=== PATIENT | female | born 2000 | race Caucasian/White ===

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

== ENCOUNTER 2019-03-13 15:20 | Emergency (ER) | payer MEDICAID ==
[~2019-03-13] VITALS: Ht 152.4 cm; Wt 55.8 kg
[~2019-03-13 15:20] MED LIST changes: +OMEP40CA13 PO; -OMEP40CA37 PO; +ONDA4TAB12 PO
[2019-03-13] MEDS ORDERED: ondansetron/PF 4mg/2ml inj IV ONE (15:30)
[2019-03-13] MEDS ORDERED: normal saline 1000ML IV soln IVB ONE (15:30)
[2019-03-13 15:59] LABS: BASOPHILS % (AUTO) 0.2 % (0-1); EOSINOPHILS % (AUTO) 0 % (0-6); HEMATOCRIT 39.6 % (35.0-45.0); HEMOGLOBIN 13.5 g/dl (12.0-16.0); LYMPHOCYTES # (AUTO) 0.9 X10'3 (1.1-4.8); LYMPHOCYTES % (AUTO) 7.9 % (21-51); MEAN CORPUSCULAR HEMOGLOBIN 32.4 PG (27.0-31.0); MEAN CORPUSCULAR HGB CONC 34.2 g/dL (33.0-36.5); MEAN CORPUSCULAR VOLUME 94.7 FL (78-98); MONOCYTES # (AUTO) 0.3 X10'3 (0-0.9); MONOCYTES % (AUTO) 2.3 % (2-12); NEUTROPHILS % (AUTO) 89.6 % (42-75); PLATELET COUNT 358 X10'3 (140-440); RED BLOOD COUNT 4.18 X10'6 (4.20-5.60); RED CELL DISTRIBUTION WIDTH 12.6 % (11.5-14.5); WHITE BLOOD COUNT 11.1 X10'3 (4.5-11.0)
[2019-03-13 16:02] LABS: CLARITY,URINE SLIGHTLY CLOUDY (Clear); COLOR,URINE YELLOW (Yellow); GLUCOSE, URINE NEGATIVE (Neg); KETONES,URINE >=80 mg/dl (Neg); LEUKOCYTE ESTERASE ,URINE NEGATIVE (Neg); NITRITES, URINE NEGATIVE (Neg); OCCULT BLOOD,URINE TRACE-INTACT (Neg); PROTEIN,URINE 30 mg/dl (Neg); UROBILINOGEN,URINE 0.2 E.U/dL (0.2-1.0)
[2019-03-13 16:07] LABS: UA COLLECTION TYPE CLN CATCH MIDSTREAM
[2019-03-13 16:13] LABS: ALANINE AMINOTRANSFERASE 20 U/L (12-78); ALBUMIN 4.5 G/DL (3.4-5.0); ALBUMIN/GLOBULIN RATIO 1.1 (1.1-1.5); ALKALINE PHOSPHATASE 59 IU/L (20-180); ANION GAP 20 (8-16); ASPARTATE AMINO TRANSFERASE 16 U/L (10-37); BILIRUBIN,TOTAL 0.4 MG/DL (0.1-1.0); BLOOD UREA NITROGEN 18 MG/DL (7-18); BUN/CREATININE RATIO 20.2 (6.6-38.0); CALCIUM 9.8 MG/DL (8.5-10.1); CHLORIDE 98 MMOL/L (99-107); CREATININE 0.89 MG/DL (0.40-0.90); GLUCOSE 100 MG/DL (70-104); LIPASE < 50 U/L (73-393); POTASSIUM 3.6 MMOL/L (3.5-5.1); SODIUM 136 MMOL/L (135-145); TOTAL CARBON DIOXIDE 18.3 MMOL/L (24-32); TOTAL PROTEIN 8.5 G/DL (6.4-8.2); eGFR 82 ML/MIN
[2019-03-13 16:20] LABS: MUCUS STRANDS MANY /LPF (Neg); SQUAMOUS EPITHELIAL CELL,UR MANY /LPF (FEW)
[2019-03-13 16:22] LABS: BACTERIA,URINE 1+ /HPF (Neg)
[2019-03-13 16:23] LABS: TRANSITIONAL EPI CELLS,URINE FEW /HPF
[2019-03-13 16:24] LABS: RBC,URINE 0-2 /HPF (0-2)
[2019-03-13 16:25] LABS: HYALINE CASTS 0-3 /LPF (NEGATIVE)
[2019-03-13] MEDS ORDERED: PROC25SU31 RC (17:23)
[2019-03-13 18:02] VITALS: BP 125/76
== END 2019-03-13 18:04 | disposition home or self-care (01) ==
LOC: ER 15:20
DX: R11.15 Cyclical vomiting syndrome unrelated to migraine (principal); R11.2 Nausea with vomiting, unspecified; R10.13 Epigastric pain; R19.7 Diarrhea, unspecified; F12.90 Cannabis use, unspecified, uncomplicated; Z79.899 Other long term (current) drug therapy
CPT/HCPCS: 36415; 80053; 81001; 83690; 85025; 96361; 96374; 99283; J2405; J7030

== ENCOUNTER 2021-01-07 05:34 | Emergency (ER) | payer MEDICAID ==
[~2021-01-07] VITALS: Ht 152.4 cm; Wt 56.8 kg
[~2021-01-07 05:34] MED LIST changes: -OMEP40CA13 PO; +OMEP40CA21 PO
[2021-01-07] MEDS ORDERED: normal saline 1000ml 1,000 ML IV ONE (06:15)
[2021-01-07] MEDS ORDERED: ondansetron/PF 4mg/2ml inj IV ONE (06:15)
[2021-01-07 06:54] LABS: ALBUMIN 4.4 G/DL (3.4-5.0); ANION GAP 13 (8-16); BLOOD UREA NITROGEN 17 MG/DL (7-18); BUN/CREATININE RATIO 19.5 (6.6-38.0); CALCIUM 9.4 MG/DL (8.5-10.1); CHLORIDE 98 MMOL/L (99-107); CREATININE 0.87 MG/DL (0.40-0.90); GLUCOSE 118 MG/DL (70-104); POTASSIUM 3.5 MMOL/L (3.5-5.1); SODIUM 135 MMOL/L (135-145); TOTAL CARBON DIOXIDE 24.4 MMOL/L (24-32); eGFR 82 ML/MIN
[2021-01-07 07:08] LABS: URINE HCG NEGATIVE (NEG)
[2021-01-07 07:27] VITALS: BP 104/66
== END 2021-01-07 07:28 | disposition home or self-care (01) ==
LOC: ER 05:34
DX: R11.15 Cyclical vomiting syndrome unrelated to migraine (principal); R25.2 Cramp and spasm; F12.90 Cannabis use, unspecified, uncomplicated; Z79.899 Other long term (current) drug therapy
CPT/HCPCS: 36415; 80048; 81025; 96361; 96374; 99284; J2405; J7030

== ENCOUNTER 2021-03-08 06:37 | Emergency (ER) | payer MEDICAID ==
[~2021-03-08] VITALS: Ht 152.4 cm; Wt 57.0 kg
[2021-03-08] MEDS ORDERED: normal saline 1000ML IV soln IVB ONE (07:15)
[2021-03-08] MEDS ORDERED: pantoprazole 40MG/NS 100ML BAG 100 ML IV ONE (07:15)
[2021-03-08] MEDS ORDERED: ondansetron/PF 4mg/2ml inj IV ONE (07:15)
[2021-03-08] MEDS ORDERED: pantoprazole IV 40 MG in dextrose 5%-water 100 ML IV ONE (07:41)
[2021-03-08 07:45] LABS: ALANINE AMINOTRANSFERASE 25 U/L (12-78); ALBUMIN/GLOBULIN RATIO 0.9 (1.1-1.5); ALKALINE PHOSPHATASE 62 IU/L (46-116); ANION GAP 13 (8-16); ASPARTATE AMINO TRANSFERASE 17 U/L (10-37); BILIRUBIN,TOTAL 0.3 MG/DL (0.1-1.0); BLOOD UREA NITROGEN 15 MG/DL (7-18); BUN/CREATININE RATIO 18.5 (6.6-38.0); CALCIUM 9.2 MG/DL (8.5-10.1); CHLORIDE 96 MMOL/L (99-107); CREATININE 0.81 MG/DL (0.40-0.90); GLUCOSE 114 MG/DL (70-104); LIPASE < 50 U/L (73-393); SODIUM 136 MMOL/L (135-145); TOTAL CARBON DIOXIDE 27.4 MMOL/L (24-32); TOTAL PROTEIN 8.4 G/DL (6.4-8.2); eGFR 89 ML/MIN
[2021-03-08 07:50] LABS: BASOPHILS % (AUTO) 0.2 % (0-1); EOSINOPHILS % (AUTO) 0 % (0-6); HEMATOCRIT 38.3 % (35.0-45.0); HEMOGLOBIN 13.3 g/dl (12.0-16.0); LYMPHOCYTES # (AUTO) 0.8 X10'3 (1.1-4.8); LYMPHOCYTES % (AUTO) 13.8 % (21-51); MEAN CORPUSCULAR HEMOGLOBIN 32.3 PG (27.0-31.0); MEAN CORPUSCULAR HGB CONC 34.8 g/dL (33.0-36.5); MEAN CORPUSCULAR VOLUME 92.8 FL (78-98); MEAN PLATELET VOLUME 8.8 FL (7.4-10.4); MONOCYTES # (AUTO) 0.6 X10'3 (0-0.9); MONOCYTES % (AUTO) 9.5 % (2-12); NEUTROPHILS # (AUTO) 4.6 X10'3 (1.8-7.7); NEUTROPHILS % (AUTO) 76.5 % (42-75); PLATELET COUNT 338 X10'3 (140-440); RED BLOOD COUNT 4.13 X10'6 (4.20-5.60); RED CELL DISTRIBUTION WIDTH 12.9 % (11.5-14.5); WHITE BLOOD COUNT 6.1 X10'3 (4.5-11.0)
[2021-03-08] MEDS ORDERED: potassium Cl 10 mEq/100mL bag IV ONE (07:50)
[2021-03-08 08:02] LABS: HCG SERUM QL NEGATIVE
[2021-03-08] MEDS ORDERED: ONDA8TAB13 PO (08:07)
[2021-03-08 08:10] VITALS: BP 123/75
== END 2021-03-08 09:24 | disposition home or self-care (01) ==
LOC: ER 06:38
DX: R11.15 Cyclical vomiting syndrome unrelated to migraine (principal); R05.9 Cough, unspecified; G43.909 Migraine, unspecified, not intractable, without status migrainosus; Z20.822 Contact with and (suspected) exposure to COVID-19
CPT/HCPCS: 36415; 71046; 80053; 83690; 84703; 85025; 87635; 96365; 96375; 99284; C9113; C9803; J2405; J3480; J7030; J7060

== ENCOUNTER 2021-03-21 09:18 | Emergency (ER) | payer MEDICAID ==
[~2021-03-21] VITALS: Ht 152.4 cm; Wt 54.5 kg
[~2021-03-21 09:18] MED LIST changes: +ONDA8TAB13 PO
[2021-03-21 11:11] LABS: BASOPHILS # (AUTO) 0.1 X10'3 (0-0.2); BASOPHILS % (AUTO) 0.5 % (0-1); EOSINOPHILS % (AUTO) 0.3 % (0-6); HEMATOCRIT 39.5 % (35.0-45.0); HEMOGLOBIN 13.5 g/dl (12.0-16.0); LYMPHOCYTES # (AUTO) 1.8 X10'3 (1.1-4.8); LYMPHOCYTES % (AUTO) 14.2 % (21-51); MEAN CORPUSCULAR HEMOGLOBIN 32.3 PG (27.0-31.0); MEAN CORPUSCULAR HGB CONC 34.3 g/dL (33.0-36.5); MEAN CORPUSCULAR VOLUME 94.2 FL (78-98); MONOCYTES # (AUTO) 1.2 X10'3 (0-0.9); MONOCYTES % (AUTO) 9.8 % (2-12); NEUTROPHILS # (AUTO) 9.5 X10'3 (1.8-7.7); NEUTROPHILS % (AUTO) 75.2 % (42-75); PLATELET COUNT 429 X10'3 (140-440); RED BLOOD COUNT 4.19 X10'6 (4.20-5.60); RED CELL DISTRIBUTION WIDTH 13.4 % (11.5-14.5); WHITE BLOOD COUNT 12.6 X10'3 (4.5-11.0)
[2021-03-21 11:26] LABS: ALANINE AMINOTRANSFERASE 20 U/L (12-78); ALBUMIN 4.1 G/DL (3.4-5.0); ALKALINE PHOSPHATASE 66 IU/L (46-116); ANION GAP 11 (8-16); ASPARTATE AMINO TRANSFERASE 14 U/L (10-37); BILIRUBIN,TOTAL 0.3 MG/DL (0.1-1.0); BLOOD UREA NITROGEN 11 MG/DL (7-18); BUN/CREATININE RATIO 12.9 (6.6-38.0); CALCIUM 9.6 MG/DL (8.5-10.1); CHLORIDE 99 MMOL/L (99-107); CREATININE 0.85 MG/DL (0.40-0.90); GLUCOSE 94 MG/DL (70-104); POTASSIUM 3.7 MMOL/L (3.5-5.1); SODIUM 138 MMOL/L (135-145); TOTAL CARBON DIOXIDE 27.6 MMOL/L (24-32); TOTAL PROTEIN 8.3 G/DL (6.4-8.2); eGFR 84 ML/MIN
[2021-03-21 11:34] LABS: ACETAMINOPHEN < 2.0 UG/ML (10-30); ETHANOL < 0.010 GM/DL (0.0-0.010)
[2021-03-21 12:18] LABS: CLARITY,URINE CLEAR (Clear); COLOR,URINE YELLOW (Yellow); GLUCOSE, URINE NEGATIVE (Neg); KETONES,URINE 40 mg/dl (Neg); LEUKOCYTE ESTERASE ,URINE NEGATIVE (Neg); NITRITES, URINE NEGATIVE (Neg); OCCULT BLOOD,URINE LARGE (Neg); PROTEIN,URINE TRACE mg/dl (Neg); UROBILINOGEN,URINE 0.2 E.U/dL (0.2-1.0)
[2021-03-21 12:19] LABS: URINE HCG NEGATIVE (NEG)
[2021-03-21 12:23] LABS: UA COLLECTION TYPE CLN CATCH MIDSTREAM
[2021-03-21 12:25] LABS: BACTERIA,URINE FEW /HPF (Neg); MUCUS STRANDS MODERATE /LPF (Neg); SQUAMOUS EPITHELIAL CELL,UR FEW /LPF (FEW); WBC,URINE 0-4 /HPF (0-4)
[2021-03-21 12:32] LABS: URINE AMPHETAMINE SCREEN NEGATIVE (Neg); URINE BARBITUATE SCREEN NEGATIVE (Neg); URINE BENZODIAZEPINES SCREEN NEGATIVE (Neg); URINE CANNABINOID SCREEN POSITIVE (Neg); URINE COCAINE SCREEN NEGATIVE (Neg); URINE METHADONE SCREEN NEGATIVE (Neg); URINE OPIATE SCREEN NEGATIVE (Neg); URINE PHENCYCLIDINE SCREEN NEGATIVE (Neg)
--- NOTE | 2021-03-21 12:54 | NUR ---
Patient states she is here because her family thinks she is having a mental break. Patient states "I awoke today after 100 years and I'm the Jovan. "I can't stay here because I have people to rule and too much to do." Patient appears manic. No diagnosis of psych HX. Aunt says this has been going on constant X 3 days. Little hints now and then in the past year but nothing like this per Aunt. Patient attempted to leave after RN advised patient she was on a [address] [facility] could evaluate her. The Aunt stopped her from leaving.
--- NOTE | 2021-03-21 13:00 | NUR ---
PACKET FAXED TO [facility] OFFICE
--- NOTE | 2021-03-21 13:50 | NUR ---
Patient is hypomanic and disorganized AEB Patient talking to Aunt. "I have no modesty at all." Aunt replies, 3 days ago you were very modest. Patient states "Well I am very modest." The Aunt replies you just said you had no modesty at all." Patient states "It's because of my friend." Patient yells to RN "Just think logically! If you concentrate you can do it!" Continue to monitor.
--- NOTE | 2021-03-21 14:09 | NUR ---
[facility], [facility], evaluating patient.
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
[2021-03-21] MEDS ORDERED: diphenhydrAMINE 50 mg/ml inj IM ONE (14:45)
[2021-03-21] MEDS ORDERED: haloperidol lactate 5mg/ml inj IM ONE (14:45)
[2021-03-21] MEDS ORDERED: LORazepam 2 mg/ml vial IM ONE (14:45)
--- NOTE | 2021-03-21 15:17 | NUR ---
Patient was advised of 5150 with Security at side. Patient attempted to leave and RN gave patient ordered Ativan, Benadryl and Haldol I.M. Patient keeps stating she is leaving. Patient has 3 times attempted to leave. Patient states she is leaving in 20 minutes. Aunt left. Continue to monitor.
--- NOTE | 2021-03-21 15:20 | NUR ---
Aunt Jessica Cortez,
--- NOTE | 2021-03-21 17:10 | NUR ---
Patient sleeping. No distress observed. Continue to monitor.
[2021-03-21] MEDS ORDERED: [UNRECOGNIZED DRUG - OTHER] PO (18:36)
--- NOTE | 2021-03-21 19:00 | NUR ---
PATIENT IS AWAKE AND DELUSIONAL. SHE PRESENTS HYPOMANIC, PATIENT IDENTIFIES ROMINA THE GREAT. PATIENT EXHIBITS PRESSURED SPEECH, EYE CONTACT IS DIRECT. PATIENT IS COOPERATIVE WITH THIS CLINICAL TECH.
--- NOTE | 2021-03-21 20:56 | NUR ---
PATIENT IS SLEEPING QUIETLY ON HER LEFT SIDE. IN DIRECT VIEW FROM THE NURSES STATION.
--- NOTE | 2021-03-21 21:16 | NUR ---
COVID 19 TEST IS NEGATIVE.
--- NOTE | 2021-03-21 21:25 | NUR ---
PATIENT IS BEING MOVED TO BED 8 IN THE MAIN ED. DUSTIN ZHENG HAS BEEN GIVEN REPORT. SHE WILL BE ASSUMING CARE OF PATIENT.
--- NOTE | 2021-03-22 07:09 | NUR ---
Pt somewhat agitated. Frequently getting out of bed and pacing around room. Sitter at bedside. Pt referring to themselves as "Yusuf".
--- NOTE | 2021-03-22 08:00 | NUR ---
Pt intermittently resting. Sits up and states that she is "ready to move now". Settles after re-explaining that she is not ready to be moved yet.
--- NOTE | 2021-03-22 09:30 | NUR ---
PATIENT'S AUNT CAME IN TO VISIT, CARLO SCOTT, . SHE STATED THAT SHE FOUND LETTERS IN THE PT'S ROOM FROM "ULI" WHO IS IN LONGTERM FOR CHILD MOLESTATION, WITH "CREEPY" AND DISTURBING COMMENTS ABOUT LITTLE BOYS AND THE PATIENT'S YOUNGER BROTHER. AUNT WANTED TO MAKE US AWARE OF THE LETTERS. PT NORMALLY GOES BY "[facility]" WHEN THEY ARE NOT MANIC, AND HAS BEEN TRANS FOR ABOUT TWO YEARS PER AUNT.
--- NOTE | 2021-03-22 10:31 | NUR ---
Transported to [facility], #23 without difficulties. Security present.
--- NOTE | 2021-03-22 10:49 | NUR ---
Pt has several requests over short intervals. Requested speak with Aunt. Phone call was made and pt did speak with Aunt. Then pt demaned to know exact time of departure.
--- NOTE | 2021-03-22 14:10 | NUR ---
Pt's Aunt is at bedside.
--- NOTE | 2021-03-22 14:39 | NUR ---
Pt's aunt, Tom Esvin in to visit. Tom explained that she went through the pt's room and found multiple bottles of Amytriptyline that were prescribed to Mor Linares(pt's mother's ). Some bottles were empty and some were partially full. Another presciption bottle for omeprazole had some amytriptyline pills mixed inside. Pt's mother's name is, Jory Rivera. Tom flushed the medications down the toilet and she will be notifying both the prescribing doctor and the pharmacy that filled the medication.
--- NOTE | 2021-03-22 17:00 | NUR ---
Pt is sleeping.
[2021-03-22] MEDS ORDERED: traZODone 50mg tablet PO ONE (19:15)
[2021-03-22] MEDS ORDERED: olanzapine 10mg tablet PO SCH (19:15)
--- NOTE | 2021-03-22 19:25 | NUR ---
Assumed pt care, pt is pacing the unit, disorganized thoughts, stating "I am fabiola the great and we are gong to save the world together." Pt requested sleep aid for the evening.
--- NOTE | 2021-03-22 21:35 | NUR ---
Pt resting comfortably, appears to be sleeping, no needs at this time.
--- NOTE | 2021-03-23 00:39 | NUR ---
pt appears to be sleeping.
--- NOTE | 2021-03-23 03:23 | NUR ---
pt appears to be sleeping, no distress noted.
--- NOTE | 2021-03-23 05:16 | NUR ---
Pt is up pacing, using the restroom, hyperverbal talking about going to [place] that he hasnt been there in awhile. Wanting to use the phone to call his grandfather and keeps stating "I am going to be leaving soon, do you have Uber?"
[2021-03-23 05:19] VITALS: BP 142/90
[2021-03-23] MEDS ORDERED: diphenhydrAMINE 50 mg/ml inj IM ONE (05:45)
[2021-03-23] MEDS ORDERED: LORazepam 2 mg/ml vial IM ONE (05:45)
[2021-03-23] MEDS ORDERED: haloperidol lactate 5mg/ml inj IM ONE (05:45)
--- NOTE | 2021-03-23 05:59 | NUR ---
Pt continued to threaten to leave the unit, security called, provider notified, ordered ativan, benedryl and haldol. Pt accepted IM injections without issue.
--- NOTE | 2021-03-23 07:00 | NUR ---
Received pt awake sitting at bed. Pt remains grandiose, stating she is Yusuf the great and that she is expecting two horses to arrive for her today. Pt bx is cooperative.
--- NOTE | 2021-03-23 08:31 | NUR ---
Grandpa: Theodore Rivera [phone]
--- NOTE | 2021-03-23 09:00 | NUR ---
Pt aunt visited while pt was sleeping, spoke to this nurse for a bit and then said she'd be back later. Pt fell asleep around 0745, refused breakfast and remains asleep without signs of distress.
--- NOTE | 2021-03-23 11:00 | NUR ---
Pt awoke and remains delusional, thinking she leaving today on two horses to run some errands.
--- NOTE | 2021-03-23 13:00 | NUR ---
Pt continues to sleep on and off and has not woken for lunch yet.
--- NOTE | 2021-03-23 13:35 | NUR ---
Received call from [facility] office and pt has been accepted by Michelle Miller. Dr. Yun at 1326 with an ETA for pickup around 1530.
--- NOTE | 2021-03-23 15:00 | NUR ---
Pt auntie here to visit and then switched out with her grandfather. Pt cooperative awaiting d/c to [facility].
== END 2021-03-23 15:15 ==
LOC: ER 09:19
DX: F29 Unspecified psychosis not due to a substance or known physiological condition (principal); G43.909 Migraine, unspecified, not intractable, without status migrainosus; F12.10 Cannabis abuse, uncomplicated; Z20.822 Contact with and (suspected) exposure to COVID-19
CPT/HCPCS: 36415; 80053; 80305; 80320; 80329; 81001; 81025; 84443; 85025; 87635; 96372; 99285; C9803; J1200; J1630; J2060

== ENCOUNTER 2021-04-04 07:20 | Emergency (ER) | payer MEDICAID ==
[~2021-04-04] VITALS: Ht 149.9 cm; Wt 56.0 kg
[~2021-04-04 07:20] MED LIST changes: -OMEP40CA21 PO; -ONDA4TAB12 PO; -ONDA8TAB13 PO; +[UNRECOGNIZED DRUG - OTHER] PO
[2021-04-04 07:22] VITALS: BP 124/85
[2021-04-04 07:51] LABS: BASOPHILS % (AUTO) 0.4 % (0-1); EOSINOPHILS % (AUTO) 0 % (0-6); HEMATOCRIT 36.5 % (35.0-45.0); HEMOGLOBIN 12.6 g/dl (12.0-16.0); LYMPHOCYTES # (AUTO) 0.8 X10'3 (1.1-4.8); LYMPHOCYTES % (AUTO) 8.4 % (21-51); MEAN CORPUSCULAR HEMOGLOBIN 32.7 PG (27.0-31.0); MEAN CORPUSCULAR HGB CONC 34.7 g/dL (33.0-36.5); MEAN CORPUSCULAR VOLUME 94.4 FL (78-98); MEAN PLATELET VOLUME 7.6 FL (7.4-10.4); MONOCYTES # (AUTO) 0.5 X10'3 (0-0.9); MONOCYTES % (AUTO) 4.9 % (2-12); NEUTROPHILS # (AUTO) 8.2 X10'3 (1.8-7.7); NEUTROPHILS % (AUTO) 86.3 % (42-75); PLATELET COUNT 470 X10'3 (140-440); RED BLOOD COUNT 3.86 X10'6 (4.20-5.60); RED CELL DISTRIBUTION WIDTH 13.3 % (11.5-14.5); WHITE BLOOD COUNT 9.5 X10'3 (4.5-11.0)
[2021-04-04 07:55] LABS: URINE HCG NEGATIVE (NEG)
[2021-04-04 07:56] LABS: CLARITY,URINE CLOUDY (Clear); COLOR,URINE YELLOW (Yellow); GLUCOSE, URINE NEGATIVE (Neg); KETONES,URINE 15 mg/dl (Neg); LEUKOCYTE ESTERASE ,URINE NEGATIVE (Neg); NITRITES, URINE NEGATIVE (Neg); OCCULT BLOOD,URINE LARGE (Neg); PROTEIN,URINE 100 mg/dl (Neg); UROBILINOGEN,URINE 0.2 E.U/dL (0.2-1.0)
[2021-04-04 07:58] LABS: UA COLLECTION TYPE CLN CATCH MIDSTREAM
[2021-04-04 08:03] LABS: MUCUS STRANDS MODERATE /LPF (Neg); SQUAMOUS EPITHELIAL CELL,UR MANY /LPF (FEW)
[2021-04-04 08:04] LABS: WBC,URINE 0-4 /HPF (0-4)
[2021-04-04 08:05] LABS: BACTERIA,URINE 2+ /HPF (Neg)
[2021-04-04 08:09] LABS: ALANINE AMINOTRANSFERASE 28 U/L (12-78); ALBUMIN 4.1 G/DL (3.4-5.0); ALKALINE PHOSPHATASE 64 IU/L (46-116); ANION GAP 12 (8-16); ASPARTATE AMINO TRANSFERASE 13 U/L (10-37); BILIRUBIN,TOTAL 0.3 MG/DL (0.1-1.0); BLOOD UREA NITROGEN 11 MG/DL (7-18); BUN/CREATININE RATIO 15.3 (6.6-38.0); CALCIUM 9.8 MG/DL (8.5-10.1); CHLORIDE 99 MMOL/L (99-107); CREATININE 0.72 MG/DL (0.40-0.90); GLUCOSE 122 MG/DL (70-104); LIPASE < 50 U/L (73-393); POTASSIUM 3.4 MMOL/L (3.5-5.1); SODIUM 136 MMOL/L (135-145); TOTAL CARBON DIOXIDE 24.9 MMOL/L (24-32); TOTAL PROTEIN 8.1 G/DL (6.4-8.2); eGFR > 90 ML/MIN
== END 2021-04-04 09:46 | disposition left against medical advice (07) ==
LOC: ER 07:20
DX: R11.10 Vomiting, unspecified (principal); R10.9 Unspecified abdominal pain; Z53.21 Procedure and treatment not carried out due to patient leaving prior to being seen by health care provider
CPT/HCPCS: 36415; 80053; 81001; 81025; 83690; 85025